=== PATIENT | male | born 1985 | race Caucasian/White ===

== ENCOUNTER 2018-12-21 17:54 | Emergency (ER) | payer BC ==
[2018-12-21 18:16] VITALS: BP 130/90
[2018-12-21] MEDS ORDERED: Acetaminophen TAB* 325 MG PO ONE (18:26)
[2018-12-21] MEDS ORDERED: Cyclobenzaprine TAB* 10 MG PO ONE (19:01)
--- NOTE | 2018-12-22 08:48 | UC ---
- EKG/XRAY/CT XRAY: chest - NAD Course/Dx - Diagnoses Provider Diagnoses: Chest wall pain Discharge - Sign-Out/Discharge Documenting (check all that apply): Post-Discharge Follow Up All imaging exams completed and their final reports reviewed: Yes - Discharge Plan Condition: Fair Disposition: HOME Prescriptions: Cyclobenzaprine TAB* [Flexeril 10 MG TAB*] 10 mg PO TID PRN #15 tab PRN Reason: Pain Patient Education Materials: Chest Wall Pain (ED) Forms: *Work Release Referrals: Trudy Murray MD [Primary Care Provider] - Additional Instructions: Apply ice or heat to the sore area. No lifting more than 10 pounds over the next week. Follow-up with your primary care provider if no improvement in 3 or 4 days. Go to the emergency room if you have any worsening pain, shortness of breath, difficulty breathing, radiation of pain. - Billing Disposition and Condition Condition: FAIR Disposition: Home
--- NOTE | 2018-12-28 11:19 | UC ---
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 Patient has a history of this happening when he lifts heavy things. He states he usually takes Motrin and a muscle relaxant and it goes away. This was a sudden onset and he feels chest wall pain when he takes a deep breath. - History of Current Complaint Chief Complaint: UCGeneralIllness Stated Complaint: CHEST MUSCLE COMPLAINT Time Seen by Provider: 12/21/18 18:19 Hx Obtained From: Patient Onset/Duration: Sudden Onset Timing: Constant Initial Severity: Moderate Current Severity: Moderate Pain Intensity: 8 Chest Pain Location: Left Lateral Aggravating Factor(s): Movement, Deep Breaths Alleviating Factor(s): Rest - This is more of a muscular chest wall pain Associated Signs & Symptoms: Positive: Negative - Risk Factors Pulmonary Embolism Risk Factors: Negative Cardiac Risk Factors: Negative - Allergy/Home Medications Allergies/Adverse Reactions: Allergies Allergy/AdvReac Type Severity Reaction Status Date / Time No Known Allergies Allergy Verified 12/21/18 18:04 PMH/Surg Hx/FS Hx/Imm Hx Previously Healthy: Yes - Surgical History Surgical History: None - Family History Known Family History: Positive: Non-Contributory - Social History Occupation: Employed Full-time Lives: With Family Alcohol Use: Occasionally Substance Use Type: None Smoking Status (MU): Never Smoked Tobacco Type: eCigarettes Review of Systems All Other Systems Reviewed And Are Negative: Yes Respiratory: Positive: Other - Patient states he does not feel short of breath however he does have chest wall pain on deep inspiration. Cardiovascular: Positive: Other - Chest wall pain left lateral chest. Motor: Positive: Decreased ROM - Patient has mildly decreased range of motion of his left arm just because it causes his chest wall pain to increase. Neurovascular: Positive: Negative Musculoskeletal: Positive: Other: - He has increased pain when he is putting his left arm through range of motion. He has no left arm pain. Neurological: Positive: Negative Is Patient Immunocompromised?: No Physical Exam Triage Information Reviewed: Yes Appearance: Well-Appearing, No Pain Distress, Well-Nourished Vital Signs: Initial Vital Signs Temp 98.1 F 12/21/18 18:04 Pulse 56 12/21/18 18:04 Resp 16 12/21/18 18:04 BP 130/90 12/21/18 18:04 Pulse Ox 100 12/21/18 18:04 Vital Signs Reviewed: Yes Respiratory: Positive: Lungs clear, Normal breath sounds, No respiratory distress, No accessory muscle use, Other: - Chest wall tenderness in the left lateral chest, no crepitus, erythema, bruising, deformity or swelling. Cardiovascular: Positive: RRR, No Murmur, Pulses Normal, Brisk Capillary Refill Musculoskeletal: Positive: Strength Intact, ROM Limited @ - Range of motion limited with his left arm only because it causes increased left chest wall pain. Neurological: Positive: Alert, Muscle Tone Normal Psychological Exam: Normal Skin Exam: Normal - Assessment/Plan Course Of Treatment: Chest x-ray was negative. Patient's to apply warm moist compresses, I did give him a muscle relaxant any significant do Motrin. He's to follow-up with his primary care provider over the next few days if no improvement. I did advise him since he has a chronic problem with this that he should avoid lifting anything over 10 pounds over the next few days and then in the future avoid lifting heavy items such as today. - Clinical Impression Provider Diagnosis: Chest wall pain Discharge - Sign-Out/Discharge Documenting (check all that apply): Patient Departure All imaging exams completed and their final reports reviewed: Yes - Discharge Plan Condition: Fair Disposition: HOME Prescriptions: Cyclobenzaprine TAB* [Flexeril 10 MG TAB*] 10 mg PO TID PRN #15 tab PRN Reason: Pain Patient Education Materials: Chest Wall Pain (ED) Forms: *Work Release Referrals: Trudy Murray MD [Primary Care Provider] - Additional Instructions: Apply ice or heat to the sore area. No lifting more than 10 pounds over the next week. Follow-up with your primary care provider if no improvement in 3 or 4 days. Go to the emergency room if you have any worsening pain, shortness of breath, difficulty breathing, radiation of pain. - Billing Disposition and Condition Condition: FAIR Disposition: Home
== END 2018-12-21 19:12 | disposition home or self-care (01) ==
LOC: UCCORT 17:54
DX: R07.89 Other chest pain (principal)
CPT/HCPCS: 71046; 99202; A9270-GY; G0463